=== PATIENT | male | born 1955 | race Caucasian/White ===

== ENCOUNTER 2016-07-06 23:46 | Emergency (ER) | payer OTHER ==
[~2016-07-06] VITALS: Ht 177.8 cm; Wt 120.2 kg
[2016-07-07] MEDS ORDERED: NORVASC5 MG PO (02:57)
[2016-07-07] MEDS ORDERED: PLAVIX75 MG PO (02:58)
[2016-07-07] MEDS ORDERED: ASPIRIN81 MG PO (02:58)
[2016-07-07] MEDS ORDERED: BENADRYL25 MG PO (02:59)
[2016-07-07] MEDS ORDERED: LOPRESSOR25 MG PO (03:00)
[2016-07-07] MEDS ORDERED: PROTONIX40 M1 PO (03:00)
[2016-07-07] MEDS ORDERED: NITROSTAT0.4 MG SL (03:00)
[2016-07-07] MEDS ORDERED: TRIAMTERENE-HC1 EAC3 PO (03:02)
[2016-07-07] MEDS ORDERED: SUPER B COMPLE1 EAC1 PO (03:03)
[2016-07-07] MEDS ORDERED: VITAMIN D31000 UNI1 PO (03:03)
[2016-07-07] MEDS ORDERED: VITAMIN C500 M2 PO (03:04)
[2016-07-07] MEDS ORDERED: MULTIVITAMINS1 EAC1 PO (03:06)
[2016-07-07] MEDS ORDERED: BENZONATATE200 MG PO (03:07)
== END 2016-07-07 01:55 | disposition short-term general hospital (02) ==
LOC: ER 23:46
DX: R07.89 Other chest pain (principal); E78.5 Hyperlipidemia, unspecified; I10 Essential (primary) hypertension; K21.9 Gastro-esophageal reflux disease without esophagitis; Z79.82 Long term (current) use of aspirin; Z79.899 Other long term (current) drug therapy; Z88.0 Allergy status to penicillin; Z95.818 Presence of other cardiac implants and grafts